=== PATIENT | male | born 2000 | race Caucasian/White ===

== ENCOUNTER 2022-10-05 09:40 | Emergency (ER) | payer OTHER, BC ==
[2022-10-05 10:56] VITALS: BP 118/71; PULSE 85
[2022-10-05] MEDS ORDERED: Ibuprofen 800 MG Tab PO ONE (10:56)
== END 2022-10-05 11:25 | disposition home or self-care (01) ==
LOC: DL.ED 09:40
DX: S93.401A Sprain of unspecified ligament of right ankle, initial encounter (principal); Z88.0 Allergy status to penicillin; Z88.1 Allergy status to other antibiotic agents; Z88.8 Allergy status to other drugs, medicaments and biological substances; Z88.2 Allergy status to sulfonamides; X50.1XXA Overexertion from prolonged static or awkward postures, initial encounter; Y92.69 Other specified industrial and construction area as the place of occurrence of the external cause
CPT/HCPCS: 73610; 99283; A9270